=== PATIENT | female | born 1965 | race Caucasian/White ===

== ENCOUNTER 2022-10-19 23:06 | Emergency (ER) | payer BC, SELFPAY ==
[2022-10-19 23:21] VITALS: BP 134/78; PULSE 84; RESP 18; TEMP 36.7; O2SAT 98
== END 2022-10-20 05:00 | disposition left against medical advice (07) ==
LOC: ANHED 10-20 05:03
PROVIDERS: PCP Emergency Medicine
DX: R06.02 Shortness of breath (principal)
CPT/HCPCS: 99199